=== PATIENT | male | born 1970 | race Caucasian/White ===

== ENCOUNTER → 2020-11-01 | Outpatient (CLI) | payer OTHER ==
[~2020-11-01] MED LIST: DECADRON6 MG PO; MEDROL DOSEPAK 24 MG PO; PROVENTIL HFA6.7 GM INH
== END ==
LOC: EXRD 14:14
DX: J45.991 Cough variant asthma (principal); U07.1 COVID-19; J12.89 Other viral pneumonia
CPT/HCPCS: 71046